=== PATIENT | female | born 1970 | race Caucasian/White ===

== ENCOUNTER 2016-11-21 21:25 | Emergency (ER) | payer OTHER ==
[~2016-11-21] VITALS: Ht 162.6 cm; Wt 68.0 kg
[~2016-11-21 21:25] MED LIST: [UNRECOGNIZED DRUG - CODE]
[2016-11-21 21:30] VITALS: BP 124/70
--- NOTE | 2016-11-21 21:52 | NUR ---
[facility] in [facility] - 11/21/16 at 2156 by AYAKA Patient to OF.
--- NOTE | 2016-11-21 21:55 | NUR ---
To OF1
--- NOTE | 2016-11-21 21:56 | NUR ---
Dr. Jackson evaluating patient.
[2016-11-21 22:13] VITALS: BP 117/63
--- NOTE | 2016-11-21 22:13 | NUR ---
Patient discharged with v/s stable. Written and verbal after care instructions given and explained. Patient verbalized understanding. Ambulatory with steady gait. All questions addressed prior to discharge. Advised to follow up with PMD.
== END 2016-11-21 22:13 | disposition home or self-care (01) ==
LOC: MED 21:25
DX: R20.0 Anesthesia of skin (principal); I73.00 Raynaud's syndrome without gangrene; F41.9 Anxiety disorder, unspecified; F32.9 Major depressive disorder, single episode, unspecified
CPT/HCPCS: 99281

== ENCOUNTER 2017-03-07 09:13 | Emergency (ER) | payer SELFPAY ==
[~2017-03-07] VITALS: Ht 162.6 cm; Wt 68.7 kg
[2017-03-07 09:29] VITALS: BP 89/53
[2017-03-07] MEDS ORDERED: NACL 0.9% 1,000 ML IV ONE (10:40)
--- NOTE | 2017-03-07 10:45 | NUR ---
46/F BIB SELF C/O MID ABD PAIN, LOWER BACK PAIN X 4DAYS & C/O COUGH, HEADACHE X TODAY. DENIES N/V/D; SKIN IS PINK/WARM/DRY; AAOX4 WITH EVEN AND STEADY GAIT; LUNGS CLEAR BL; PT DENIES ANY FEVER, CP, SOB AT THIS TIME; PATIENT STATES PAIN OF 0/10 AT THIS TIME; PATIENT POSITIONED FOR COMFORT; HOB ELEVATED; BEDRAILS UP X2; BED DOWN. ER MD MADE AWARE OF PT STATUS.
--- NOTE | 2017-03-07 10:46 | NUR ---
PATIENT AMBULATED TO BED 4 AT THIS TIME
[2017-03-07] MEDS ORDERED: KETOROLAC 30 MG/ML VIAL IVP ONE (11:35)
--- NOTE | 2017-03-07 11:55 | NUR ---
IV removed, catheter intact and site benign. Applied folded 4x4 gauze and tape to stop bleeding.
[2017-03-07 11:56] VITALS: BP 108/67
--- NOTE | 2017-03-07 11:56 | NUR ---
Patient discharged with v/s stable. Written and verbal after care instructions given and explained. Patient alert, oriented and verbalized understanding of instructions. Ambulatory with steady gait. All questions addressed prior to discharge. ID band removed. Patient advised to follow up with PMD. Rx of MOTRIN & CIPRO given. Patient educated on indication of medication including possible reaction and side effects. Opportunity to ask questions provided and answered.
== END 2017-03-07 11:56 | disposition home or self-care (01) ==
LOC: MED 09:13
DX: N39.0 Urinary tract infection, site not specified (principal); J11.1 Influenza due to unidentified influenza virus with other respiratory manifestations
CPT/HCPCS: 81002; 81025; 96361; 96374; 99284; J1885; J7030